=== PATIENT | female | born 1950 | race Caucasian/White ===

== ENCOUNTER → 2016-11-25 | Outpatient (CLI) | payer BC ==
[~2016-11-25] MED LIST: CHOL100010 PO; FLUT0.0529 NAE; MULT-506 PO; OMEP40CA PO; SYN137 PO
== END | disposition home or self-care (01) ==
LOC: C.PAPS 11:13
PROVIDERS: ATTEND Obstetrics & Gynecology
DX: Z01.419 Encounter for gynecological examination (general) (routine) without abnormal findings (principal); N87.9 Dysplasia of cervix uteri, unspecified

== ENCOUNTER → 2017-06-03 | Outpatient (CLI) | payer BC ==
--- NOTE | 2017-06-03 11:04 | DIAGNOSTIC IMAGING REPORT ---
LEFT HIP UNILATERAL 2 VIEWS CLINICAL HISTORY: Z00.00 Health [id number] [id number] Esophageal re COMPARISON: None. DISCUSSION: Mild calcific trochanteric bursitis. Mild degenerative narrowing left hip joint space. Minimal sclerosis of the acetabular margin. No evidence for acetabular protrusion. No lytic or blastic process. There is no evidence for soft tissue swelling. IMPRESSION: 1. Mild degenerative change. 2. Calcific trochanteric bursitis. Electronically signed by: Edward Berry M.D. 06/03/2017 11:03 AM Dictated Date/Time: 06/03/2017 11:02 AM
== END | disposition home or self-care (01) ==
LOC: C.LAB1850 10:40
PROVIDERS: ATTEND Internal Medicine Pulmonary Disease
DX: J30.9 Allergic rhinitis, unspecified (principal); K21.9 Gastro-esophageal reflux disease without esophagitis; Z00.00 Encounter for general adult medical examination without abnormal findings; E03.9 Hypothyroidism, unspecified; J33.9 Nasal polyp, unspecified; M70.62 Trochanteric bursitis, left hip

== ENCOUNTER → 2017-08-19 | Outpatient (CLI) | payer BC ==
--- NOTE | 2017-08-19 12:29 | MAMMOGRAPHY REPORT ---
BILATERAL DIGITAL SCREENING MAMMOGRAM TOMOSYNTHESIS WITH CAD: 08/19/2017 CLINICAL HISTORY: Routine screening. Patient has no complaints. TECHNIQUE: Breast tomosynthesis in addition to standard 2D mammography was performed. Current study was also evaluated with a Computer Aided Detection (CAD) system. COMPARISON: Comparison is made to exams dated: 08/18/2016 mammogram, 08/14/2015 mammogram, 06/22/2014 ma mmogram, 06/20/2013 mammogram, 06/13/2012 mammogram, and 06/12/2011 mammogram - [facility]ter. BREAST COMPOSITION: The tissue of both breasts is heterogeneously dense, which may obscure small mas ses. FINDINGS: No suspicious masses, calcifications, or areas of architectural distortion are noted in ei ther breast. There has been no significant interval change compared to prior exams. IMPRESSION: ACR BI-RADS CATEGORY 1: NEGATIVE There is no mammographic evidence of malignancy. A 1 year screening mammogram is recommended. The pa tient will receive written notification of the results. Approximately 10% of breast cancers are not detected with mammography. A negative mammographic report should not delay biopsy if a clinically suggestive mass is present. Florida Martinez M.D. /:08/19/2017 07:51:09 Parcel Wrapper: Brianne Blandon, [facility] [address] letter sent: Normal 1/2 BI-RADS Code: ACR BI-RADS Category 1: Negative
== END | disposition home or self-care (01) ==
LOC: C.MAMM 07:05
PROVIDERS: ATTEND Family Medicine
DX: Z12.31 Encounter for screening mammogram for malignant neoplasm of breast (principal)

== ENCOUNTER → 2017-11-29 | Outpatient (CLI) | payer BC | END | disposition home or self-care (01) | LOC: C.PAPS 09:32 | PROVIDERS: ATTEND Obstetrics & Gynecology | DX: N87.9 Dysplasia of cervix uteri, unspecified (principal) ==